=== PATIENT | female | born 2000 | race African-American/Black ===

== ENCOUNTER 2018-12-21 12:37 | Emergency (ER) | payer SELFPAY ==
[~2018-12-21] VITALS: Ht 170.2 cm; Wt 88.9 kg
[2018-12-21 13:16] VITALS: BP 146/105
--- NOTE | 2018-12-21 13:32 | PHYS DOC ---
Adult General Chief Complaint Chief Complaint: SORE THROAT HPI HPI Patient is a 18 year old female who presents with complaining of sore throat. Patient complaining of sore throat since yesterday with subjective fever and few coughs. Patient states she looked at times today and developed some bumps on her tongue and was worry decided to come to ER. Patient denies sick contact, nausea and vomiting, shortness of breath and chest pain. Patient states her last menstruation period was 2 months date but she did not have any home test and is concern for possible . Review of Systems Review of Systems Constitutional: Reports subjective fever and chills Eyes: Denies change in visual acuity, redness, or eye pain [] HENT: Denies nasal congestion, reports sore throat [] Respiratory: Denies cough or shortness of breath [] Cardiovascular: No additional information not addressed in HPI [] GI: Denies abdominal pain, nausea, vomiting, bloody stools or diarrhea [] : Denies dysuria or hematuria [] Musculoskeletal: Denies back pain or joint pain [] Integument: Denies rash or skin lesions [] Neurologic: Denies headache, focal weakness or sensory changes [] Endocrine: Denies polyuria or polydipsia [] All other systems were reviewed and found to be within normal limits, except as documented in this note. Physical Exam Physical Exam Constitutional: Well developed, well nourished, no acute distress, non-toxic appearance. [] HENT: Normocephalic, atraumatic, bilateral external ears normal, oropharynx moist, pharyngeal erythema and tonsillar edema and right side,no oral exudates, nose normal. [] Eyes: PERRLA, EOMI, conjunctiva normal, no discharge. [] Neck: Normal range of motion, no tenderness, supple, no stridor. [] Cardiovascular:Heart rate regular rhythm, no murmur [] Lungs & Thorax: Bilateral breath sounds clear to auscultation [] Skin: Warm, dry, no erythema, no rash. [] Back: No tenderness, no CVA tenderness. [] Extremities: No tenderness, no cyanosis, no clubbing, ROM intact, no edema. [] Neurologic: Alert and oriented X 3, normal motor function, normal sensory function, no focal deficits noted. [] Psychologic: Affect normal, judgement normal, mood normal. [] Current Patient Data Vital Signs Vital Signs Date Time Temp Pulse Resp B/P (MAP) Pulse Ox O2 Delivery O2 Flow Rate FiO2 12/21/18 13:16 98.2 60 16 146/105 (119) 99 Room Air 98.2 Lab Values Laboratory Tests Test 12/21/18 13:25 POC Urine HCG, Qualitative Hcg positive (Negative) EKG EKG [] Radiology/Procedures Radiology/Procedures [] Course & Med Decision Making Course & Med Decision Making Pertinent Labs reviewed. (See chart for details) Evaluation of patient in ER showed 18-year-old female patient with complaining of sore throat and missed period. Patient had mild pharyngeal edema and erythema without exudate. Strep test was negative and test was positive. Patient was advised to take only Tylenol as needed for pain and follow-up with on-call [facility]. Patient did not have vaginal bleeding or discharge or complaining of abdominal pain. Dragon Disclaimer Dragon Disclaimer This electronic medical record was generated, in whole or in part, using a voice recognition dictation system. Departure Departure Impression: Primary Impression: Acute viral pharyngitis Additional Impression: Positive urine test Disposition: HOME, SELF-CARE (at 1343) Condition: STABLE Referrals: MARIA ESTHER ROGEL Jr, MD Patient Instructions: ABCs of , Viral Pharyngitis Additional Instructions: Drink plenty of liquids Follow-up with your primary care physician in 3-5 days Return to ER if not getting better May take [id number] Tylenol as needed for pain Follow-up with on-call INTER[facility] OPER[facility] in 2 or 3 days Problem Qualifiers JEAN MARIE CONNELL MD Dec 21, 2018 13:32
== END 2018-12-21 14:02 | disposition home or self-care (01) ==
LOC: ER 12:37
DX: J02.8 Acute pharyngitis due to other specified organisms (principal); B97.89 Other viral agents as the cause of diseases classified elsewhere; Z33.1 Pregnant state, incidental
CPT/HCPCS: 81025; 87070; 87880; 99283